=== PATIENT | male | born 1995 | race Two or more races ===

== ENCOUNTER 2025-10-10 08:27 | Inpatient (IN) | payer MEDICAID ==
[2025-10-10] VITALS (7 sets, daily range): BP systolic 116–127; BP diastolic 83–87; PULSE 74–107; RESP 16–22; TEMP 98.7–98.9; O2SAT 97–100
[~2025-10-10] VITALS: Ht 165.1 cm; Wt 71.6 kg
--- NOTE | 2025-10-10 09:21 | ED.PDOC ---
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 Patient's mother reports that she has tried manual disimpaction, given him enema, suppositories and lactulose but it has not helped relieve the abdominal distention patient has, neither has he passed any stool. She states that his rectal vault is empty when she tried per rectal disimpaction. Since yesterday, she has been unable to feed him via the G-tube as he coughs a lot when she tries to do so. She reports that he had aspiration pneumonia 1 month ago and was given antibiotics. Mother further states that patient's SpO2 was in the 80s today and he had a low-grade fever, prompting her to bring him to the ER. Chief Complaint: Constipation Time Seen by MD: 09:00 Reviewed Notes: Medications, Allergies Allergies: Coded Allergies: NO KNOWN ALLERGIES (Unverified , 10/10/25) Information Source: Legal Guardian Mode of Arrival: Ambulatory Severity: Severe Timing: Days Duration: Since onset Prehospital treatment: None Past Medical History PAST MEDICAL HISTORY: High Lipids Past Medical History (Other): Traumatic brain injury Surgical History: Denies all surgeries Family History Family History: Unknown Social History Smoker: Non-Smoker Alcohol: Denies ETOH Use Drugs: Denies Drug Use Constitutional: reports: fever; denies: chills, diaphoresis, fatigue, malaise, sweats, weakness, others EENTM: denies: blurred vision, double vision, ear bleeding, ear discharge, ear drainage, ear pain, ear ringing, eye pain, eye redness, hearing loss, mouth pain, mouth swelling, nasal discharge, nose bleeding, nose congestion, nose pain, photophobia, tearing, throat pain, throat swelling, voice changes, others Respiratory: reports: cough, SOB at rest; denies: hemoptysis, orthopnea, shortness of breath, SOB with excertion, stridor, wheezing, others Cardiovascular: denies: chest pain, dizzy spells, diaphoresis, Dyspnea on exertion, edema, irregular heart beat, left arm pain, lightheadedness, palpitations, PND, syncope, others Gastrointestinal: reports: abdomen distended, constipated; denies: abdominal pain, blood streaked bowels, diarrhea, dysphagia, difficulty swallowing, hematemesis, melena, nausea, poor appetite, poor fluid intake, rectal bleeding, rectal pain, vomiting, others Genitourinary: denies: burning, dysuria, flank pain, frequency, hematuria, incontinence, penile discharge, penile sore, pain, testicle pain, testicle swelling, urgency, others Neurological: denies: dizziness, fainting, headache, left sided numbness, left sided weakness, numbness, paresthesia, pre-existing deficit, right sided numbness, right sided weakness, seizure, speech problems, tingling, tremors, weakness, others Musculoskeletal: denies: back pain, gout, joint pain, joint swelling, muscle pain, muscle stiffness, neck pain, others Integumetry: denies: bruises, change in color, change in hair/nails, dryness, laceration, lesions, lumps, rash, wounds, others Allergic/Immunocompromised: denies: Difficulty Healing, Frequent Infections, Hives, Itching, others Hematologic/Lymphatic: denies: anemia, blood clots, easy bleeding, easy bruising, swollen glands, others Endocrine: denies: excessive hunger, excessive sweating, excessive thirst, excessive urination, flushing, intolerance to cold, intolerance to heat, unexplained weight gain, unexplained weight loss, others Psychiatric: denies: anxiety, bipolar disorder, depression, hopeless, panic disorder, schizophrenia, sleepless, suicidal, others Physical Exam General Appearance: Other (Minimal consciousness due to traumatic brain injury) HEENT: Normal ENT Inspection, Other (Patient on 2 L of oxygen via nasal can nula, No pallor or icterus) Neck: Non-Tender, Normal, Normal Inspection Respiratory: No Accessory Muscle Use, Other (Mild crackles in the right lower lung base) Cardiovascular: No Edema, No JVD, No Murmur, Regular Rate/Rhythm Breast Exam: Deferred Gastrointestinal: Distended (Mild Distention, presence of G-tube, no masses palpated), Normal Bowel Sounds Genitalia: Deferred Pelvic: Deferred Rectal: Deferred Extremities: Non-tender, No pedal edema, Other (Patient is wheelchair-bound) Neurologic: Other (Absence of facial droop, could not assess motor and sensory deficits as patient has minimal consciousness) Cerebellar Function: NOT DONE Reflexes: NOT DONE Skin: Normal Color Lymphatic: Other (No cervical lymphadenopathy palpated) Was a procedure done? Was a procedure done?: No Differential Dx Considerations may include: SBO, aspiration pneumonia, upper respiratory tract infection, constipation X-Ray, Labs, Meds, VS Vital Signs Date Time Temp Pulse Resp B/P (MAP) Pulse Ox O2 Delivery O2 Flow Rate FiO2 10/10/25 11:00 74 17 132/80 (97) 99 10/10/25 09:31 18 97 Nasal Cannula* 2 28 10/10/25 09:00 98.9 84 18 116/87 (97) 98 98.9 10/10/25 09:00 84 18 98 Nasal Cannula* 2 28 10/10/25 08:30 99.1 80 20 121/93 92 99.1 Lab Test 10/10/25 09:20 Range/Units White Blood Count 8.6 4.4-10.8 10^3/uL Red Blood Count 5.21 4.5-5.90 10^6/uL Hemoglobin 14.2 13.5-17.5 g/dL Hematocrit 44.0 41.0-53.0 % Mean Corpuscular Volume 84.5 80.0-100.0 fL Mean Corpuscular Hemoglobin 27.3 L 28.0-32.0 pg Mean Corpuscular Hemoglobin Concent 32.3 32.0-36.0 g/dL Red Cell Distribution Width 14.5 H 11.8-14.3 % Platelet Count 339 140-450 10^3/uL Mean Platelet Volume 8.3 6.9-10.8 fL Neutrophils (%) (Auto) 60.4 37.0-80.0 % Lymphocytes (%) (Auto) 31.2 10.0-50.0 % Monocytes (%) (Auto) 6.5 0.0-12.0 % Eosinophils (%) (Auto) 1.5 0.0-7.0 % Basophils (%) (Auto) 0.4 0.0-2.0 % Neutrophils # (Auto) 5.2 1.6-8.6 10 ^3/uL Lymphocytes # (Auto) 2.7 0.4-5.4 10 ^3/uL Monocytes # (Auto) 0.6 0-1.3 10 ^3/uL Eosinophils # (Auto) 0.1 0-0.8 10 ^3/uL Basophils # (Auto) 0 0-0.2 10 ^3/uL Nucleated Red Blood Cells 0.1 % Sodium Level 145 136-145 mmol/L Potassium Level 4.1 3.5-5.1 mmol/L Chloride Level 108 H 98-107 mmol/L Carbon Dioxide Level 25 20-31 mmol/L Anion Gap 12 5-15 Blood Urea Nitrogen 21 9-23 mg/dL Creatinine 0.77 0.700-1.30 mg/dL Glomerular Filtration Rate Calc 124 >90 mL/min BUN/Creatinine Ratio 27.3 H 10.0-20.0 Serum Glucose 81 74-106 mg/dL Calcium Level 9.6 8.7-10.4 mg/dL Total Bilirubin 0.3 0.2-1.0 mg/dL Aspartate Amino Transferase (AST) 25 13-40 U/L Alanine Aminotransferase (ALT) 24 7-40 U/L Alkaline Phosphatase 52 46-116 U/L Total Protein 7.8 5.7-8.2 g/dL Albumin 4.3 3.2-4.8 g/dL Lipase 31 12-53 U/L Current Medications Medications (Trade) Dose Ordered Sig/Pete Route Start Time Stop Time Status Last Admin Sodium Chloride 1,000 ml @ 1,000 mls/hr Q1H ONCE IV 10/10/25 09:15 10/10/25 10:14 DC 10/10/25 10:45 Albuterol (Ventolin Medneb) 2.5 mg ONCE ONCE NEB 10/10/25 09:15 10/10/25 09:18 DC 10/10/25 09:30 Ipratropium [place] (Atrovent Medneb) 0.5 mg ONCE ONCE NEB 10/10/25 09:15 10/10/25 09:18 DC 10/10/25 09:30 Images Reviewed?: Images reviewed and evaluated by me Time of 1ST Reevaluation: 11:25 Reevaluation 1ST: Unchanged Patient Education/Counseling: Pt Unresponsive Family Education/Counseling: Diagnosis, Treatment Comments Patient was brought by his mother to the ER for constipation and inability to feed via G-tube as well as for cough. On initial assessment, patient was nonresponsive, abdomen is mildly distended, and vitals were: temp 99.1, HR 80, RR 20, BP 121/93 mmHg, SpO2 96% on 2 L oxygen. Chest x-ray shows no acute cardiopulmonary disease. CBC and BMP are within normal limits. Patient is on 2 L oxygen via nasal cannula as his saturation was 92% in room air in the ER. 1 L bolus of NS was given as patient has not been able to eat since yesterday and seems dehydrated. Since patient is a hard stick, midline was placed with ultrasound guidance. Med nebulization/respiratory therapy was also given to the patient (albuterol 2.5 mg and ipratropium bromide 0.[address] scan shows ' No evidence of small bowel obstruction. Stool throughout the colon may suggest constipation in the appropriate clinical setting; Bilateral nonobstructive renal calculi; Cholelithiasi and Bilateral lower lobe opacities may represent atelectasis over pneumonia should be excluded clinically.' Chest x-ray shows no acute disease. Patient requires inpatient admission and further workup and management for cough, low saturation, abdominal distention and constipation not resolved via outpatient treatment. I I have personally evaluated the patient. Agree with resident findings above. We have discussed the case extensively and plan has been made and treatment plan of the patient along with myself. SEPSIS Sepsis Screen Date sepsis recognized/suspect: Oct 10, 2025 Time Sepsis recognized/suspect: 08 Recent Procedure: No On Antibiotic Therapy: No Respiratory Rate >20: No Heart Rate >90: No Temp<36 C (96.8 F) or >38.3 C: No SBP <90 or MAP <65 mmHG: No New Acute Mental Status Change: No Is the patient on CPAP, BIPAP,: No Physician Orders Ct Ab Pel Wo Con-No Oral Or Iv (10/10/25 11:14) Chest Xray 1 View (10/10/25 10:40) Vital Signs Date Time Temp Pulse Resp B/P (MAP) Pulse Ox O2 Delivery O2 Flow Rate FiO2 10/10/25 11:00 74 17 132/80 (97) 99 10/10/25 09:31 18 97 Nasal Cannula* 2 28 10/10/25 09:00 98.9 84 18 116/87 (97) 98 98.9 10/10/25 09:00 84 18 98 Nasal Cannula* 2 28 10/10/25 08:30 99.1 80 20 121/93 92 99.1 Laboratory Tests Test 10/10/25 09:20 White Blood Count 8.6 10^3/uL (4.4-10.8) Medications Medications Dose Ordered Sig/Pete Route Start Time Stop Time Status Last Admin Dose Admin Albuterol 2.5 mg ONCE ONCE NEB 10/10/25 09:15 10/10/25 09:18 DC 10/10/25 09:30 Ipratropium [place] 0.5 mg ONCE ONCE NEB 10/10/25 09:15 10/10/25 09:18 DC 10/10/25 09:30 Sodium Chloride 1,000 ml @ 1,000 mls/hr Q1H ONCE IV 10/10/25 09:15 10/10/25 10:14 DC 10/10/25 10:45 Departure 1 Departure Time of Disposition: 11:00 Impression: Primary Impression: Constipation Qualified Codes: K59.00 - Constipation, unspecified Additional Impressions: Cholelithiasis Qualified Codes: K80.80 - Other cholelithiasis without obstruction Nephrolithiasis Acute hypoxic respiratory failure Disposition: ADMITTED INPATIENT Admit to: Med Surg Condition: Unstable Critical Care Note Critical Care Time?: No Stability Stability form required: No Heart Score Heart Score: Heart Score Response (Comments) Value History N/A 0 EKG N/A 0 Age N/A 0 Risk Factors N/A 0 Troponin N/A 0 Total 0 BILLY GALINDO Oct 10, 2025 09:21 PALOMA VERDUGO MD Oct 10, 2025 17:12
[2025-10-10] MEDS: IPRATROPIUM BROM 0.5 MG/2.5ML INH SOL NEB ONE (09:30)
[2025-10-10] MEDS: ALBUTEROL SULF 2.5 MG/0.5ML(0.5%) NEB SOLN NEB ONE (09:30)
[2025-10-10] MEDS: ALBUTEROL SULF 2.5 MG/0.5ML(0.5%) NEB SOLN ONE (09:30)
[2025-10-10 09:39] LABS: Hematocrit 44.0 % (41.0-53.0); Hemoglobin 14.2 g/dL (13.5-17.5); Mean Corpuscular Hemoglobin 27.3 pg (28.0-32.0); Mean Corpuscular Volume 84.5 fL (80.0-100.0); Nucleated Red Blood Cells % 0.1 %
[2025-10-10 09:57] LABS: Alanine Aminotransferase 24 U/L (7-40); Albumin 4.3 g/dL (3.2-4.8); Alkaline Phosphatase 52 U/L (46-116); Anion Gap 12 (5-15); BUN/Creatinine Ratio 27.3 (10.0-20.0); Blood Urea Nitrogen 21 mg/dL (9-23); Calcium 9.6 mg/dL (8.7-10.4); Carbon Dioxide 25 mmol/L (20-31); Glucose 81 mg/dL (74-106); Potassium 4.1 mmol/L (3.5-5.1); Total Protein 7.8 g/dL (5.7-8.2)
[2025-10-10 09:58] LABS: Chloride 108 mmol/L (98-107); Sodium 145 mmol/L (136-145)
[2025-10-10 09:59] LABS: Bilirubin, Total 0.3 mg/dL (0.2-1.0)
[2025-10-10 10:28] LABS: Lipase 31 U/L (12-53)
[2025-10-10] MEDS: SODIUM CHLORIDE 0.9% 1,000 ML IV ONE (10:45)
--- NOTE | 2025-10-10 11:12 | DVH ---
CHEST RADIOGRAPH Indication: sob Technique: Single frontal view of the chest was obtained COMPARISON: None FINDINGS: Lines and Tubes: None Lungs: Clear Pleura: No effusion. No pneumothorax. Cardiomediastinal contours: Unremarkable Bones: Unremarkable IMPRESSION: No acute disease.
--- NOTE | 2025-10-10 11:14 | DVHHP2 ---
History of Present Illness History of Present Illness This is a 30-year-old male with a past medical history of traumatic brain injury in 2018 who is bed-bound with chronic neurological deficits. He was brought by his mother due to one week of cough, difficulty tolerating G-tube feedings, and worsening constipation despite enemas and suppositories. The mother reports needing to manually disimpact him at home. On arrival he was afebrile, hemodynamically stable, and on 2 L oxygen. CMP was normal. Chest X-ray was unremarkable, but CT of the chest and abdomen showed bibasilar pneumonia consistent with aspiration and a large stool burden without obstruction. It also revealed bilateral non-obstructing renal calculi and cholelithiasis. COVID and influenza tests are pending. PMHx Traumatic brain injury (2018). Chronic bed-bound state with severe contractures. Gastrostomy tube dependence. PSH Gastrostomy tube placement. Prior tracheostomy (now removed). Social History Lives with mother, who is the primary caregiver. No reported tobacco, alcohol, or drug use. ROS ROS obtained from caregiver, negative except as stated in HPI. Review of Systems Allergies: Coded Allergies: NO KNOWN ALLERGIES (Unverified , 10/10/25) Exam Vital Signs Vital Signs Date Time Temp Pulse Resp B/P (MAP) Pulse Ox O2 Delivery O2 Flow Rate FiO2 10/10/25 09:31 18 97 Nasal Cannula* 2 28 10/10/25 09:00 98.9 84 116/87 (97) 98.9 Exam General: Bed-bound male, non-verbal but comfortable. HEENT: Moist mucous membranes. Cardiovascular: Regular rate and rhythm. Pulmonary: Mild bibasilar crackles. Abdomen: Soft, nondistended. G-tube site clean and intact. Extremities: Severe contractures of upper and lower limbs. Skin: Healed surgical scars, no pressure ulcers appreciated. Neuro: Chronic deficits due to traumatic brain injury. Labs/Xrays Labs Test 10/10/25 09:20 Range/Units White Blood Count 8.6 4.4-10.8 10^3/uL Red Blood Count 5.21 4.5-5.90 10^6/uL Hemoglobin 14.2 13.5-17.5 g/dL Hematocrit 44.0 41.0-53.0 % Mean Corpuscular Volume 84.5 80.0-100.0 fL Mean Corpuscular Hemoglobin 27.3 L 28.0-32.0 pg Mean Corpuscular Hemoglobin Concent 32.3 32.0-36.0 g/dL Red Cell Distribution Width 14.5 H 11.8-14.3 % Platelet Count 339 140-450 10^3/uL Mean Platelet Volume 8.3 6.9-10.8 fL Neutrophils (%) (Auto) 60.4 37.0-80.0 % Lymphocytes (%) (Auto) 31.2 10.0-50.0 % Monocytes (%) (Auto) 6.5 0.0-12.0 % Eosinophils (%) (Auto) 1.5 0.0-7.0 % Basophils (%) (Auto) 0.4 0.0-2.0 % Neutrophils # (Auto) 5.2 1.6-8.6 10 ^3/uL Lymphocytes # (Auto) 2.7 0.4-5.4 10 ^3/uL Monocytes # (Auto) 0.6 0-1.3 10 ^3/uL Eosinophils # (Auto) 0.1 0-0.8 10 ^3/uL Basophils # (Auto) 0 0-0.2 10 ^3/uL Nucleated Red Blood Cells 0.1 % Sodium Level 145 136-145 mmol/L Potassium Level 4.1 3.5-5.1 mmol/L Chloride Level 108 H 98-107 mmol/L Carbon Dioxide Level 25 20-31 mmol/L Anion Gap 12 5-15 Blood Urea Nitrogen 21 9-23 mg/dL Creatinine 0.77 0.700-1.30 mg/dL Glomerular Filtration Rate Calc 124 >90 mL/min BUN/Creatinine Ratio 27.3 H 10.0-20.0 Serum Glucose 81 74-106 mg/dL Calcium Level 9.6 8.7-10.4 mg/dL Total Bilirubin 0.3 0.2-1.0 mg/dL Aspartate Amino Transferase (AST) 25 13-40 U/L Alanine Aminotransferase (ALT) 24 7-40 U/L Alkaline Phosphatase 52 46-116 U/L Total Protein 7.8 5.7-8.2 g/dL Albumin 4.3 3.2-4.8 g/dL Lipase 31 12-53 U/L SEPSIS Sepsis Screen Date sepsis recognized/suspect: Oct 10, 2025 Time Sepsis recognized/suspect: 0832 Recent Procedure: No On Antibiotic Therapy: No Respiratory Rate >20: No Heart Rate >90: No Temp<36 C (96.8 F) or >38.3 C: No SBP <90 or MAP <65 mmHG: No New Acute Mental Status Change: No Is the patient on CPAP, BIPAP,: No Physician Orders Ct Ab Pel Wo Con-No Oral Or Iv (10/10/25 09:04) Chest Xray 1 View (10/10/25 10:40) Admit (10/10/25 11:08) Code Status (10/10/25 11:08) Vital Signs .PER UNIT PROTOCOL (10/10/25 11:08) Review Orders With Adm.Md (10/10/25 11:08) Notify Md Of Changes From Base (10/10/25 11:08) Advance Directive (10/10/25 11:08) Patient Condition (10/10/25 11:08) Allergies (10/10/25 11:08) Oxygen By Nasal Cannula (10/10/25 11:08) Stat Ekg For Chest Pain (10/10/25 11:08) Notify Md Of Changes From Base (10/10/25 11:08) Cattle Sticker For 24 Hours (10/10/25 11:08) Emergency Dysrhythmia Protocol (10/10/25 11:08) Rhythm Strips Once Every Shift (10/10/25 11:08) Ceftriaxone Ivpb Rocephin (10/10/25 11:15) Azithromycin 500mg/250ml (Zithromax 500m (10/11/25 10:00) Albuterol Medneb (Ventolin Medneb) (10/10/25 12:00) Ipratropium Medneb (Atrovent Medneb) (10/10/25 12:00) Levetiracetam Tablet (Keppra Tablet) (10/10/25 22:00) Vital Signs Date Time Temp Pulse Resp B/P (MAP) Pulse Ox O2 Delivery O2 Flow Rate FiO2 10/10/25 09:31 18 97 Nasal Cannula* 2 28 10/10/25 09:00 98.9 84 18 116/87 (97) 98 98.9 10/10/25 09:00 84 18 98 Nasal Cannula* 2 28 10/10/25 08:30 99.1 80 20 121/93 92 99.1 Laboratory Tests Test 10/10/25 09:20 White Blood Count 8.6 10^3/uL (4.4-10.8) Medications Medications Dose Ordered Sig/Pete Route Start Time Stop Time Status Last Admin Dose Admin Albuterol 2.5 mg ONCE ONCE NEB 10/10/25 09:15 10/10/25 09:18 DC 10/10/25 09:30 2.5 MG Ipratropium [place] 0.5 mg ONCE ONCE NEB 10/10/25 09:15 10/10/25 09:18 DC 10/10/25 09:30 0.5 MG Sodium Chloride 1,000 ml @ 1,000 mls/hr Q1H ONCE IV 10/10/25 09:15 10/10/25 10:14 DC 10/10/25 10:45 1,000 MLS/HR Assessment/Plan Assessment/Plan #Acute respiratory failure # Aspiration pneumonia Findings on CT suggest aspiration related to chronic dysphagia and neurological impairment. Continue ceftriaxone and azithromycin, maintain aspiration precautions, and monitor oxygen needs, now 2LT O2. # Constipation Large stool burden on imaging without obstruction, likely related to immobility and poor gastrointestinal motility. Continue lactulose, initiate scheduled bowel regimen, hydration optimization, and monitor bowel movements. 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 Continue levetiracetam and supportive measures. Maintain skin protection and evaluate caregiver support needs. # Gastrostomy tube dependence G-tube functioning well. Begin tube feedings per nutrition recommendations and monitor for tolerance. # Non-obstructing renal calculi Incidental CT finding without hydronephrosis. Encourage hydration and monitor; no acute intervention required. #Cholelithiasis No signs of acute cholecystitis at the moment Case discussed with Dr Dorantes Full code Plan discussed with: Patient, Other (rn) My Orders Orders - CARMELO RODRIGUEZ RESIDENT Procedure Category Date Status Time Admit ADMIT 10/10/25 Transmitted 11:08 Code Status CODE 10/10/25 Transmitted 11:[address] [facility] 10/10/25 Transmitted 11:08 Review Orders With [place] 10/10/25 Transmitted Adm. 11:[address] [facility] 10/10/25 Transmitted From Base 11:[address] [facility] 10/10/25 Transmitted 11:08 Patient Condition ORDERS 10/10/25 Transmitted 11:[address] [facility] 10/10/25 Transmitted 11:08 Oxygen By Nasal RT 10/10/25 Transmitted Cannula 11:[address] Chest [facility] 10/10/25 Transmitted Pain 11:[address] [facility] 10/10/25 Transmitted From Base 11:[address] [facility] 10/10/25 Transmitted 24 Hours 11:[address] [facility] 10/10/25 Transmitted Protocol 11:[address] [facility] 10/10/25 Transmitted Every Shift 11:08 Ceftriaxone Ivpb [facility] 10/10/25 Transmitted Rocephin 11:15 Azithromycin [facility] 10/11/25 Transmitted 500mg/250ml 10:00 Albuterol Medneb [facility] 10/10/25 Transmitted (Ventolin Medneb) 12:00 Ipratropium Medneb [facility] 10/10/25 Transmitted (Atrovent Medneb) 12:00 Levetiracetam Tablet [facility] 10/10/25 Transmitted (Keppra Tablet) 22:00 Date of Service: Oct 10, 2025 Billing Provider: CRIS DORANTES MD Common Visit Codes: 05395-[id number] INP/OBS CARE (HIGH) Secondary Visit Codes: [id number]-[id number] CARE PLAN 30 MINUTES CARMLEO RODRIGUEZ RESIDENT Oct 10, 2025 11:14
--- NOTE | 2025-10-10 11:53 | DVH ---
Exam: CT CT AB PEL WO CON-NO ORAL OR IV History: r/o sbo, patient consitpated for 4 days. Comparison Study: CT CT AB PEL WO CON-NO ORAL OR IV on DOS: 02/17/24 Technique: Multidetector spiral CT of the abdomen and pelvis was performed from lung bases to pubic symphysis. Imaging was performed without intravenous contrast. Coronal and sagittal multiplanar reformats were obtained from the axial data set by the technologist. Radiation Dose : 1. Abdomen/Pelvis: CTDIvol 12.28 mGy, DLP 739.5 mGy*cm. Findings: Evaluation of vasculature and solid organs is limited due to lack of intravenous contrast use. Lung Bases: Bilateral lower lobe opacities. Visualized portions of the heart and pericardium are unremarkable. Liver: The liver is normal in size. No focal lesions. Gallbladder and Biliary Tree: There are multiple gallstones. No intrahepatic or extrahepatic biliary ductal dilatation. Spleen: Unremarkable Pancreas: The pancreas is grossly unremarkable. Adrenal Glands: Unremarkable Kidneys: Bilateral nonobstructive renal calculi measuring up to 3 mm in the left lower pole. GI tract: There is a percutaneous gastrostomy tube with the balloon in the gastric lumen. No evidence of small bowel wall thickening or abnormal dilatation to suggest bowel obstruction. Stool is noted throughout the colon. Normal appendix Peritoneum/mesentery/retroperitoneum. No evidence of free intraperitoneal air. No ascites. No evidence of suspicious lymphadenopathy. Abdominal Wall: Unremarkable. Vasculature: The visualized abdominal aorta is normal in size and caliber. Evaluation of abdominal and pelvic vessels is limited due to lack of intravenous contrast. Urinary Bladder: Grossly unremarkable for degree of distention. Pelvic Organs: Unremarkable Musculoskeletal: No aggressive focal bony lesions, acute fractures or dislocation. IMPRESSION: 1. No evidence of small bowel obstruction. Stool throughout the colon may suggest constipation in the appropriate clinical setting 2. Bilateral nonobstructive renal calculi. 3. Cholelithiasis. 4. Bilateral lower lobe opacities may represent atelectasis over pneumonia should be excluded clinically.
[2025-10-10] MEDS: IPRATROPIUM BROM 0.5 MG/2.5ML INH SOL NEB SCH (12:15)
[2025-10-10] MEDS: ALBUTEROL SULF 2.5 MG/0.5ML(0.5%) NEB SOLN NEB SCH (12:15)
[2025-10-10] MEDS ORDERED: Glucerna 1.2 Cal 1Liter BOTTLE GT SCH (12:30)
[2025-10-10 13:00] LABS: COVID19 ANTIGEN SOFIA FIA NEGATIVE (NEGATIVE)
[2025-10-10] MEDS: SODIUM CHLORIDE 0.9% 1,000 ML IV SCH (21:17)
[2025-10-10] MEDS: PANTOPRAZOLE 40 MG/10 ML VIAL INJ IV ONE (21:17)
[2025-10-10] MEDS: levETIRAcetam 500 mg/100ml 100 ML IV SCH (21:17)
[2025-10-10] MEDS ORDERED: LACTULOSE 20Gm/30ML SOLN PO SCH (22:00)
[2025-10-11] VITALS (14 sets, daily range): BP systolic 96–128; BP diastolic 58–91; PULSE 67–95; RESP 17–20; TEMP 97.2–97.5; O2SAT 95–100
[2025-10-11 01:38] LABS: Urine Protein, UAD TRACE (Negative)
[2025-10-11 05:53] LABS: Hematocrit 38.0 % (41.0-53.0); Hemoglobin 12.1 g/dL (13.5-17.5); Mean Corpuscular Hemoglobin 27.8 pg (28.0-32.0); Mean Corpuscular Volume 87.3 fL (80.0-100.0); Nucleated Red Blood Cells % 0.1 %
[2025-10-11 06:12] LABS: Alanine Aminotransferase 21 U/L (7-40); Albumin 3.6 g/dL (3.2-4.8); Anion Gap 9 (5-15); BUN/Creatinine Ratio 25.8 (10.0-20.0); Blood Urea Nitrogen 16 mg/dL (9-23); Carbon Dioxide 23 mmol/L (20-31); Glucose 87 mg/dL (74-106); Potassium 3.8 mmol/L (3.5-5.1); Sodium 143 mmol/L (136-145); Total Protein 6.9 g/dL (5.7-8.2)
[2025-10-11 06:13] LABS: Alkaline Phosphatase 43 U/L (46-116); Bilirubin, Total 0.3 mg/dL (0.2-1.0); Calcium 8.5 mg/dL (8.7-10.4); Chloride 111 mmol/L (98-107)
--- NOTE | 2025-10-11 07:03 | DVH ---
CHEST RADIOGRAPH Indication: possible aspiration pneumonia Technique: Single frontal view of the chest was obtained COMPARISON: XY CHEST XRAY 1 VIEW on DOS: 10/10/25 FINDINGS: Lines and Tubes: None Lungs: Clear Pleura: No effusion. No pneumothorax. Cardiomediastinal contours: Unremarkable Bones: Unremarkable IMPRESSION: 1. No acute disease.
[2025-10-11] MEDS: PANTOPRAZOLE 40 MG/10 ML VIAL INJ IV SCH (09:49)
[2025-10-11] MEDS ORDERED: ENOXAPARIN SOD 40 MG/0.4 ML SYRINGE SC SCH (10:00)
[2025-10-11] MEDS: AZITHROMYCIN 500MG/250ML 250 ML IV SCH (10:49)
--- NOTE | 2025-10-11 14:27 | DVHPN2 ---
Subjective non verbal discussed with mother nomi over the phone Reviewed: H&P Changes from previous H/P or p: No Changes Objective Vitals Vital Signs Date Time Temp Pulse Resp B/P (MAP) Pulse Ox O2 Delivery O2 Flow Rate FiO2 10/11/25 13:00 97.2 94 19 118/91 (100) 97 97.2 10/11/25 11:00 Nasal Cannula 2.0 10/11/25 11:00 28 Intake/Output Intake and Output 10/11/25 07:00 Intake Total 1050 ml Balance 1050 ml Intake Oral 950 ml IV Total 100 ml # Bowel Movements 1 General Appearance: Alert HEENT: Atraumatic Cardiovascular: Regular rate, Normal S1, Normal S2 Medications Current Medications Medications Dose Ordered Sig/Pete Route Start Time Stop Time Status Last Admin Dose Admin Ceftriaxone Sodium 50 ml @ 100 mls/hr DAILY@09 IV 10/10/25 11:15 10/11/25 09:49 100 MLS/HR Azithromycin 250 ml @ 125 mls/hr DAILY IV 10/11/25 10:00 10/11/25 10:49 125 MLS/HR Albuterol 2.5 mg Q6HWA [facility] 10/10/25 12:00 10/11/25 11:00 2.5 MG Ipratropium [place] 0.5 mg Q6HWA [facility] 10/10/25 12:00 10/11/25 11:00 0.5 MG Pantoprazole Sodium 40 mg DAILY IV 10/11/25 10:00 10/11/25 09:49 40 MG Levetiracetam 100 ml @ 400 mls/hr BID IV 10/10/25 22:00 10/11/25 10:41 400 MLS/HR Sodium Chloride 1,000 ml @ 75 mls/hr [id number] IV 10/10/25 20:30 10/11/25 09:54 75 MLS/HR Laboratory Results Laboratory Tests 10/11/25 05:18 Chemistry Test 10/11/25 05:18 Albumin 3.6 g/dL (3.2-4.8) Calcium Level 8.5 mg/dL (8.7-10.4) L Total Protein 6.9 g/dL (5.7-8.2) LFT Test 10/11/25 05:18 Alanine Aminotransferase (ALT) 21 U/L (7-40) Alkaline Phosphatase 43 U/L (46-116) L Aspartate Amino Transferase (AST) 27 U/L (13-40) Total Bilirubin 0.3 mg/dL (0.2-1.0) Urinalysis Test 10/11/25 00:30 Urine Color Yellow (Yellow) Urine Clarity Clear (Clear) Urine pH 6.5 (5.0-9.0) Urine Specific [place] 1.026 (1.001-1.035) Urine Protein Trace (Negative) H Urine Ketones Negative (Negative) Urine Blood Negative /uL (Negative) Urine Nitrite Negative (Negative) Urine Bilirubin Negative (Negative) Urine Urobilinogen Normal mg/dL (Negative) Urine Leukocyte Esterase Negative /uL (Negative) Urine RBC 8 /hpf (0 - 3) Urine Microscopic WBC 10 /HPF (0-3) H Urine Squamous Epithelial Cells Few /hpf (<5) Urine Bacteria Few /hpf (None Seen) H Urine Mucus Few (None Seen) Urine Glucose Normal mg/dL (Normal) Assessment/Plan Assessment/Plan #Acute respiratory failure # Aspiration pneumonia Findings on CT suggest aspiration related to chronic dysphagia and neurological impairment. Continue ceftriaxone and azithromycin, maintain aspiration precautions, and monitor oxygen needs, now 2LT O2. # Constipation Large stool burden on imaging without obstruction, likely related to immobility and poor gastrointestinal motility. Continue lactulose, initiate scheduled bowel regimen, hydration optimization, and monitor bowel movements. 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 Continue levetiracetam and supportive measures. Maintain skin protection and evaluate caregiver support needs. # Gastrostomy tube dependence G-tube functioning well. Begin tube feedings per nutrition recommendations and monitor for tolerance. # Non-obstructing renal calculi Incidental CT finding without hydronephrosis. Encourage hydration and monitor; no acute intervention required. #Cholelithiasis No signs of acute cholecystitis at the moment Plan discussed with: Other (mother) My Orders Orders - ESTELLA CONDE MD Procedure Category Date Status Time * Dietary Consult CONS 10/11/25 Transmitted 11:42 Date of Service: Oct 11, 2025 Billing Provider: ESTELLA CONDE MD Common Visit Codes: [id number] INP/OBS CARE(HIGH) ESTELLA CONDE MD Oct 11, 2025 14:27
[2025-10-11] MEDS: METOCLOPRAMIDE 10 mg/10ml ORAL soln GT SCH (22:56)
[2025-10-12] VITALS (15 sets, daily range): BP systolic 112–130; BP diastolic 70–90; PULSE 59–93; RESP 14–17; TEMP 97.4–99.5; O2SAT 93–100
[2025-10-12] MEDS: LACTULOSE 20Gm/30ML SOLN GT ONE (12:38)
[2025-10-12] MEDS: METOCLOPRAMIDE HCL 5MG/ml INJ 2ml VIAL IV SCH (13:25)
[2025-10-12] MEDS: Jevity 1.2 Cal/Fiber 1 Liter GT SCH (13:58)
--- NOTE | 2025-10-12 14:35 | DVHPN2 ---
Subjective non verbal discussed with mother nomi in person Reviewed: H&P Changes from previous H/P or p: No Changes Objective Vitals Vital Signs Date Time Temp Pulse Resp B/P (MAP) Pulse Ox O2 Delivery O2 Flow Rate FiO2 10/12/25 13:00 98.0 92 17 130/79 (96) 96 98.0 10/12/25 12:07 Nasal Cannula 2.0 10/12/25 12:07 28 Intake/Output Intake and Output 10/12/25 05:00 Intake Total 0 ml Output Total 360 ml Balance -360 ml Intake Oral 0 ml Output Urine Total 360 ml General Appearance: Alert HEENT: Atraumatic Cardiovascular: Regular rate, Normal S1, Normal S2 Medications Current Medications Medications Dose Ordered Sig/Pete Route Start Time Stop Time Status Last Admin Dose Admin Ceftriaxone Sodium 50 ml @ 100 mls/hr DAILY@09 IV 10/10/25 11:15 10/12/25 08:30 100 MLS/HR Azithromycin 250 ml @ 125 mls/hr DAILY IV 10/11/25 10:00 10/12/25 10:06 125 MLS/HR Albuterol 2.5 mg Q6HWA [facility] 10/10/25 12:00 10/12/25 12:07 2.5 MG Ipratropium [place] 0.5 mg Q6HWA [facility] 10/10/25 12:00 10/12/25 12:07 0.5 MG Pantoprazole Sodium 40 mg DAILY IV 10/11/25 10:00 10/12/25 08:30 40 MG Levetiracetam 100 ml @ 400 mls/hr BID IV 10/10/25 22:00 10/12/25 09:16 400 MLS/HR Sodium Chloride 1,000 ml @ 75 mls/hr [id number] IV 10/10/25 20:30 10/12/25 12:37 75 MLS/HR Lactulose 30 ml BID GT 10/12/25 22:00 Metoclopramide HCl 10 mg Q8HR IV 10/12/25 14:00 10/12/25 13:25 10 MG Enteral Nutritional Formula 1,000 ml 60ML/HR GT 10/12/25 12:45 10/12/25 13:58 1,000 ML Laboratory Results Laboratory Tests 10/11/25 05:18 Urinalysis Test 12/6/25 00:30 Urine Color Yellow (Yellow) Urine Clarity Clear (Clear) Urine pH 6.5 (5.0-9.0) Urine Specific [place] 1.026 (1.001-1.035) Urine Protein Trace (Negative) H Urine Ketones Negative (Negative) Urine Blood Negative /uL (Negative) Urine Nitrite Negative (Negative) Urine Bilirubin Negative (Negative) Urine Urobilinogen Normal mg/dL (Negative) Urine Leukocyte Esterase Negative /uL (Negative) Urine RBC 8 /hpf (0 - 3) Urine Microscopic WBC 10 /HPF (0-3) H Urine Squamous Epithelial Cells Few /hpf (<5) Urine Bacteria Few /hpf (None Seen) H Urine Mucus Few (None Seen) Urine Glucose Normal mg/dL (Normal) Assessment/Plan Assessment/Plan #Acute respiratory failure # Aspiration pneumonia Findings on CT suggest aspiration related to chronic dysphagia and neurological impairment. Continue ceftriaxone and azithromycin, maintain aspiration precautions, and monitor oxygen needs, now 2LT O2. # Constipation Large stool burden on imaging without obstruction, likely related to immobility and poor gastrointestinal motility. Continue lactulose, initiate scheduled bowel regimen, hydration optimization, and monitor bowel movements. 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 Continue levetiracetam and supportive measures. Maintain skin protection and evaluate caregiver support needs. # Gastrostomy tube dependence G-tube functioning well. Begin tube feedings per nutrition recommendations and monitor for tolerance. Dietitian consult # Non-obstructing renal calculi Incidental CT finding without hydronephrosis. Encourage hydration and monitor; no acute intervention required. #Cholelithiasis No signs of acute cholecystitis at the moment Dispo: [facility] in next 1-2, will go home to mother Plan discussed with: Other (mother) My Orders Orders - ESTELLA CONDE MD Procedure Category Date Status Time Lactulose Oral PHA 10/12/25 In Process 22:00 Metoclopramide PHA 10/12/25 In Process Injection (Reglan 14:00 Tube Feeding DIET 10/12/25 Transmitted Lunch Nutritional PHA 10/12/25 In Process Supplements (Jevity 12:45 Date of Service: Oct 12, 2025 Billing Provider: ESTELLA CONDE MD Common Visit Codes: [id number] INP/OBS CARE(HIGH) ESTELLA CONDE MD Oct 12, 2025 14:35
[2025-10-12] MEDS: LACTULOSE 20Gm/30ML SOLN GT SCH (22:33)
[2025-10-13] VITALS (16 sets, daily range): BP systolic 122–125; BP diastolic 63–85; PULSE 80–98; RESP 15–18; TEMP 98–99.2; O2SAT 94–100
--- NOTE | 2025-10-13 15:49 | DVHPN2 ---
Subjective non verbal discussed with mother nomi in person Reviewed: H&P Changes from previous H/P or p: No Changes Objective Vitals Vital Signs Date Time Temp Pulse Resp B/P (MAP) Pulse Ox O2 Delivery O2 Flow Rate FiO2 10/13/25 13:00 98.2 96 17 123/85 (98) 97 98.2 10/13/25 11:07 Nasal Cannula 2.0 10/13/25 11:07 28 Intake/Output Intake and Output 10/13/25 05:00 Intake Total 1406 ml Output Total 1275 ml Balance 131 ml Intake Oral 6 ml IV Total 1400 ml Output Urine Total 1275 ml General Appearance: Alert HEENT: Atraumatic Cardiovascular: Regular rate, Normal S1, Normal S2 Medications Current Medications Medications Dose Ordered Sig/Pete Route Start Time Stop Time Status Last Admin Dose Admin Ceftriaxone Sodium 50 ml @ 100 mls/hr DAILY@09 IV 10/10/25 11:15 10/13/25 08:34 100 MLS/HR Azithromycin 250 ml @ 125 mls/hr DAILY IV 10/11/25 10:00 10/13/25 10:12 125 MLS/HR Albuterol 2.[address] [facility] 10/10/25 12:00 10/13/25 11:07 2.5 MG Ipratropium [place] 0.5 mg Q6HWA [facility]B 10/10/25 12:00 10/13/25 11:07 0.5 MG Pantoprazole Sodium 40 mg DAILY IV 10/11/25 10:00 10/13/25 08:35 40 MG Levetiracetam 100 ml @ 400 mls/hr BID IV 10/10/25 22:00 10/13/25 09:33 400 MLS/HR Sodium Chloride 1,000 ml @ 75 mls/hr [id number] IV 10/10/25 20:30 10/13/25 15:14 75 MLS/HR Lactulose 30 ml BID GT 10/12/25 22:00 10/13/25 08:35 30 ML Metoclopramide HCl 10 mg Q8HR IV 10/12/25 14:00 10/13/25 13:40 10 MG Enteral Nutritional Formula 1,000 ml 60ML/HR GT 10/12/25 12:45 10/13/25 06:53 1,000 ML Laboratory Results Laboratory Tests 10/11/25 05:18 Urinalysis Test 10/11/25 00:30 Urine Color Yellow (Yellow) Urine Clarity Clear (Clear) Urine pH 6.5 (5.0-9.0) Urine Specific [place] 1.026 (1.001-1.035) Urine Protein Trace (Negative) H Urine Ketones Negative (Negative) Urine Blood Negative /uL (Negative) Urine Nitrite Negative (Negative) Urine Bilirubin Negative (Negative) Urine Urobilinogen Normal mg/dL (Negative) Urine Leukocyte Esterase Negative /uL (Negative) Urine RBC 8 /hpf (0 - 3) Urine Microscopic WBC 10 /HPF (0-3) H Urine Squamous Epithelial Cells Few /hpf (<5) Urine Bacteria Few /hpf (None Seen) H Urine Mucus Few (None Seen) Urine Glucose Normal mg/dL (Normal) Assessment/Plan Assessment/Plan #Acute respiratory failure # Aspiration pneumonia Findings on CT suggest aspiration related to chronic dysphagia and neurological impairment. Continue ceftriaxone and azithromycin, maintain aspiration precautions, and monitor oxygen needs, now 2LT O2. # Constipation Large stool burden on imaging without obstruction, likely related to immobility and poor gastrointestinal motility. Continue lactulose, initiate scheduled bowel regimen, hydration optimization, and monitor bowel movements. 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 Continue levetiracetam and supportive measures. Maintain skin protection and evaluate caregiver support needs. # Gastrostomy tube dependence G-tube functioning well. Begin tube feedings per nutrition recommendations and monitor for tolerance. Dietitian consult # Non-obstructing renal calculi Incidental CT finding without hydronephrosis. Encourage hydration and monitor; no acute intervention required. #Cholelithiasis No signs of acute cholecystitis at the moment Dispo: [facility] in next 1-2, will go home to mother Plan discussed with: Other (mother) Date of Service: Oct 13, 2025 Billing Provider: ESTELLA CONDE MD Common Visit Codes: [id number] INP/OBS CARE(HIGH) ESTELLA CONDE MD Oct 13, 2025 15:49
[2025-10-14] VITALS (15 sets, daily range): BP systolic 116–132; BP diastolic 71–90; PULSE 63–105; RESP 16–20; TEMP 97.9–99.8; O2SAT 92–100
--- NOTE | 2025-10-14 12:19 | DVHPN2 ---
Subjective non verbal discussed with mother nomi in person Reviewed: H&P Changes from previous H/P or p: No Changes Objective Vitals Vital Signs Date Time Temp Pulse Resp B/P (MAP) Pulse Ox O2 Delivery O2 Flow Rate FiO2 10/14/25 11:47 89 18 99 10/14/25 09:36 Nasal Cannula* 1 24 10/14/25 05:00 98.1 123/84 (97) 98.1 Intake/Output Intake and Output 10/14/25 07:00 Intake Total 0 ml Output Total 1400 ml Balance -1400 ml Intake Oral 0 ml Output Urine Total 1400 ml # Bowel Movements 1 General Appearance: Alert HEENT: Atraumatic Cardiovascular: Regular rate, Normal S1, Normal S2 Medications Current Medications Medications Dose Ordered Sig/Pete Route Start Time Stop Time Status Last Admin Dose Admin Ceftriaxone Sodium 50 ml @ 100 mls/hr DAILY@09 IV 10/10/25 11:15 10/14/25 08:13 100 MLS/HR Azithromycin 250 ml @ 125 mls/hr DAILY IV 10/11/25 10:00 10/14/25 10:21 125 MLS/HR Albuterol 2.5 mg Q6HWA NEB 10/10/25 12:00 10/14/25 11:41 2.5 MG Ipratropium [place] 0.5 mg Q6HWA NEB 10/10/25 12:00 10/14/25 11:41 0.5 MG Pantoprazole Sodium 40 mg DAILY IV 10/11/25 10:00 10/14/25 08:58 40 MG Levetiracetam 100 ml @ 400 mls/hr BID IV 10/10/25 22:00 10/14/25 08:58 400 MLS/HR Sodium Chloride 1,000 ml @ 75 mls/hr [id number] IV 10/10/25 20:30 10/14/25 03:00 75 MLS/HR Lactulose 30 ml BID GT 10/12/25 22:00 10/14/25 08:58 30 ML Metoclopramide HCl 10 mg Q8HR IV 10/12/25 14:00 10/14/25 06:17 10 MG Enteral Nutritional Formula 1,000 ml 60ML/HR GT 10/12/25 12:45 10/13/25 06:53 1,000 ML Laboratory Results Laboratory Tests 10/11/25 05:18 Urinalysis Test 12/6/25 00:30 Urine Color Yellow (Yellow) Urine Clarity Clear (Clear) Urine pH 6.5 (5.0-9.0) Urine Specific [place] 1.026 (1.001-1.035) Urine Protein Trace (Negative) H Urine Ketones Negative (Negative) Urine Blood Negative /uL (Negative) Urine Nitrite Negative (Negative) Urine Bilirubin Negative (Negative) Urine Urobilinogen Normal mg/dL (Negative) Urine Leukocyte Esterase Negative /uL (Negative) Urine RBC 8 /hpf (0 - 3) Urine Microscopic WBC 10 /HPF (0-3) H Urine Squamous Epithelial Cells Few /hpf (<5) Urine Bacteria Few /hpf (None Seen) H Urine Mucus Few (None Seen) Urine Glucose Normal mg/dL (Normal) Assessment/Plan Assessment/Plan #Acute respiratory failure # Aspiration pneumonia Findings on CT suggest aspiration related to chronic dysphagia and neurological impairment. Continue ceftriaxone and azithromycin, maintain aspiration precautions, and monitor oxygen needs, now 2LT O2. # Constipation Large stool burden on imaging without obstruction, likely related to immobility and poor gastrointestinal motility. Continue lactulose, initiate scheduled bowel regimen, hydration optimization, and monitor bowel movements. 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 Continue levetiracetam and supportive measures. Maintain skin protection and evaluate caregiver support needs. # Gastrostomy tube dependence G-tube functioning well. Begin tube feedings per nutrition recommendations and monitor for tolerance. Dietitian consult # Non-obstructing renal calculi Incidental CT finding without hydronephrosis. Encourage hydration and monitor; no acute intervention required. #Cholelithiasis No signs of acute cholecystitis at the moment Dispo: [facility] in next 1-2, will go home to mother Plan discussed with: Patient My Orders Orders - ESTELLA CONDE MD Procedure Category Date Status Time Basic Metabolic Panel LAB 10/14/25 Logged 10:56 Date of Service: Oct 14, 2025 Billing Provider: ESTELLA CONDE MD Common Visit Codes: [id number] INP/OBS CARE(HIGH) ESTELLA CONDE MD Oct 14, 2025 12:19
[2025-10-14 14:09] LABS: Potassium 4.0 mmol/L (3.5-5.1); Sodium 142 mmol/L (136-145)
[2025-10-14 14:10] LABS: Anion Gap 11 (5-15); Carbon Dioxide 24 mmol/L (20-31)
[2025-10-14 14:13] LABS: Calcium 8.5 mg/dL (8.7-10.4); Chloride 107 mmol/L (98-107)
[2025-10-14 14:16] LABS: BUN/Creatinine Ratio 9.3 (10.0-20.0); Blood Urea Nitrogen < 5 mg/dL (9-23); Glucose 109 mg/dL (74-106)
[2025-10-15] VITALS (11 sets, daily range): BP systolic 103–122; BP diastolic 69–87; PULSE 78–98; RESP 16–18; TEMP 97.4–98.5; O2SAT 93–100
[2025-10-15] MEDS ORDERED: AUG875T PO (12:22)
--- NOTE | 2025-10-15 17:24 | DVHDS2 ---
Discharge Summary Date of Admission Oct 10, 2025 at 11:08 Date of Discharge: Oct 15, 2025 Labs/Diagnostic Data: Laboratory Results Test 10/14/25 12:58 10/11/25 05:18 10/11/25 03:55 10/11/25 00:30 Sodium Level 142 mmol/L (136-145) Potassium Level 4.0 mmol/L (3.5-5.1) Chloride Level 107 mmol/L (98-107) Carbon Dioxide Level 24 mmol/L (20-31) Anion Gap 11 (5-15) Blood Urea Nitrogen < 5 mg/dL (9-23) Creatinine 0.54 mg/dL (0.700-1.30) Glomerular Filtration Rate Calc 137 mL/min (>90) BUN/Creatinine Ratio 9.3 (10.0-20.0) Serum Glucose 109 mg/dL (74-106) Calcium Level 8.5 mg/dL (8.7-10.4) White Blood Count 9.5 10^3/uL (4.4-10.8) Red Blood Count 4.35 10^6/uL (4.5-5.90) Hemoglobin 12.1 g/dL (13.5-17.5) Hematocrit 38.0 % (41.0-53.0) Mean Corpuscular Volume 87.3 fL (80.0-100.0) Mean Corpuscular Hemoglobin 27.8 pg (28.0-32.0) Mean Corpuscular Hemoglobin Concent 31.8 g/dL (32.0-36.0) Red Cell Distribution Width 14.6 % (11.8-14.3) Platelet Count 265 10^3/uL (140-450) Mean Platelet Volume 8.1 fL (6.9-10.8) Neutrophils (%) (Auto) 68.5 % (37.0-80.0) Lymphocytes (%) (Auto) 23.2 % (10.0-50.0) Monocytes (%) (Auto) 6.5 % (0.0-12.0) Eosinophils (%) (Auto) 1.4 % (0.0-7.0) Basophils (%) (Auto) 0.4 % (0.0-2.0) Neutrophils # (Auto) 6.5 10 ^3/uL (1.6-8.6) Lymphocytes # (Auto) 2.2 10 ^3/uL (0.4-5.4) Monocytes # (Auto) 0.6 10 ^3/uL (0-1.3) Eosinophils # (Auto) 0.1 10 ^3/uL (0-0.8) Basophils # (Auto) 0 10 ^3/uL (0-0.2) Nucleated Red Blood Cells 0.1 % Total Bilirubin 0.3 mg/dL (0.2-1.0) Aspartate Amino Transferase (AST) 27 U/L (13-40) Alanine Aminotransferase (ALT) 21 U/L (7-40) Alkaline Phosphatase 43 U/L (46-116) Total Protein 6.9 g/dL (5.7-8.2) Albumin 3.6 g/dL (3.2-4.8) Stool Occult Blood Negative (Negative) Stool Occult Blood Sample #3 (Negative) Urine Color Yellow (Yellow) Urine Clarity Clear (Clear) Urine pH 6.5 (5.0-9.0) Urine Specific [place] 1.026 (1.001-1.035) Urine Protein Trace (Negative) Urine Ketones Negative (Negative) Urine Blood Negative /uL (Negative) Urine Nitrite Negative (Negative) Urine Bilirubin Negative (Negative) Urine Urobilinogen Normal mg/dL (Negative) Urine Leukocyte Esterase Negative /uL (Negative) Urine RBC 8 /hpf (0 - 3) Urine Microscopic WBC 10 /HPF (0-3) Urine Squamous Epithelial Cells Few /hpf (<5) Urine Bacteria Few /hpf (None Seen) Urine Mucus Few (None Seen) Urine Glucose Normal mg/dL (Normal) Test 10/10/25 12:18 10/10/25 09:20 Influenza Type A Antigen Negative (Negative) Influenza Type B Antigen Negative (Negative) SARS-CoV-2 Antigen (Rapid) Negative (NEGATIVE) Lipase 31 U/L (12-53) Other Laboratory Tests 10/14/25 12:58 10/11/25 05:18 Brief Hx & Hospital Course: 30-year-old male with a past medical history of traumatic brain injury in 2018 who is bed-bound with chronic neurological deficits. He was brought by his mother due to one week of cough, difficulty tolerating G-tube feedings, and worsening constipation despite enemas and suppositories. The mother reports needing to manually disimpact him at home. On arrival he was afebrile, hemodynamically stable, and on 2 L oxygen. CMP was normal. Chest X-ray was unremarkable, but CT of the chest and abdomen showed bibasilar pneumonia consistent with aspiration and a large stool burden without obstruction. It also revealed bilateral non-obstructing renal calculi and cholelithiasis. COVID and influenza tests are pending. Aspiratoin pneumonia weaned off oxygen on oral antibiotics Condition at Discharge: Good Final Diagnosis/Problems List acute hypoxic respiratory failure due to aspiration pneumonia aspiration pneumonia functional paraplegia Discharge Disposition: Home Discharge Instruct/Medications Diet: Regular Activity: No Restrictions, As Tolerated Follow Up/Referral: PCP in 7 days Medications: augmentin Scheduled Amoxicillin & Pot Clavulanate (Augmentin Tablet), 875 MG PO BID Discharge Statement: "Patient was advised to return to the ER or call 911 if any headaches, dizziness, shortness of breath, chest pain, abdominal pain, bleeding, fevers, or worsening of medical condition. Patient was counseled about treatment plan, medications, possible side effects, patientverbalized understanding. All questions were answered to the best of my ability. This discharge took greater then 30 minutes in planning, reviewing documentation, counseling the patient, and discussing with other team members." ASSESSMENT ASSESSMENT Assessment acute hypoxic respiratory failure aspiration pneumonia Date of Service: Oct 15, 2025 Billing Provider: ESTELLA CONDE MD Common Visit Codes: [id number] DISCH DAY >30min ESTELLA CONDE MD Oct 15, 2025 17:24
[2025-10-15] MEDS ORDERED: IPRATROPIUM BROM 0.5 MG/2.5ML INH SOL ONE (17:51)
== END 2025-10-15 15:18 | disposition home or self-care (01) | DRG 137 ==
LOC: ER 08:27 → OVERFLOW 11:08 → WEST WING 17:50 → TELE-WESTW 10-11 02:46
PROVIDERS: ADMIT Hospitalist; ATTEND Hospitalist
PROC: 05HD33Z Insertion of Infusion Device into Right Cephalic Vein, Percutaneous Approach (ICD-10-PCS; principal; 2025-10-10)
PROC: B54MZZA Ultrasonography of Right Upper Extremity Veins, Guidance (ICD-10-PCS; 2025-10-10)
DX: J69.0 Pneumonitis due to inhalation of food and vomit (principal); J96.01 Acute respiratory failure with hypoxia; K59.00 Constipation, unspecified; F44.4 Conversion disorder with motor symptom or deficit; K80.20 Calculus of gallbladder without cholecystitis without obstruction; Z20.822 Contact with and (suspected) exposure to COVID-19; N20.0 Calculus of kidney; Z93.1 Gastrostomy status; Z87.820 Personal history of traumatic brain injury; Z87.01 Personal history of pneumonia (recurrent); Z74.01 Bed confinement status
CPT/HCPCS: 36415; 71045; 74176; 80048; 80053; 81001; 82270; 83690; 85025; 87426; 87804; 94640; G0378; J2470